=== PATIENT | female | born 1960 | race Two or more races ===

== ENCOUNTER 2017-03-27 15:26 | Emergency (ER) | payer MEDICAID, OTHER ==
[~2017-03-27] VITALS: Ht 160 cm; Wt 88.5 kg
[~2017-03-27 15:26] MED LIST: LISI2.5T47 PO; METF-370 PO
[2017-03-27 17:22] VITALS: BP 133/78
[2017-03-27 17:22] LABS: Urine Bacteria NONE SEEN /hpf (None Seen); Urine Blood 3+ /uL (Negative); Urine Mucus FEW (None Seen); Urine WBC 1599 /hpf (0 - 5); Urine WBC Clumps PRESENT /hpf (None Seen)
[2017-03-27] MEDS ORDERED: KETOROLAC TROMETH 60MG/2ML VIAL IM ONE ×2 (18:00→18:30)
== END 2017-03-27 19:13 | disposition home or self-care (01) ==
LOC: ER 15:26
DX: N39.0 Urinary tract infection, site not specified (principal); K42.9 Umbilical hernia without obstruction or gangrene; Z88.8 Allergy status to other drugs, medicaments and biological substances; I48.91 Unspecified atrial fibrillation; E11.9 Type 2 diabetes mellitus without complications
CPT/HCPCS: 74176; 81001; 82962; 96372; 99285; J1885

== ENCOUNTER 2018-01-21 10:55 | Emergency (ER) | payer MEDICAID, OTHER ==
[~2018-01-21] VITALS: Ht 160 cm; Wt 90.7 kg
[2018-01-21 11:01] VITALS: BP 157/79
[2018-01-21 12:11] LABS: Urine Bacteria NONE SEEN /hpf (None Seen); Urine Blood Negative /uL (Negative); Urine Specific Gravity 1.013 (1.001-1.035); Urine WBC <1 /hpf (0 - 5)
[2018-01-21] MEDS ORDERED: HYDROcodone-ACET 10/325MG TAB PO ONE (13:15)
[2018-01-21] MEDS ORDERED: CEFOTETAN DISODIUM IV ONE (15:45)
[2018-01-21] MEDS ORDERED: D5W 5% IV ONE (15:45)
[2018-01-21] MEDS ORDERED: cefTRIAXone SODIUM 250 MG VL IM ONE (16:00)
== END 2018-01-21 16:26 | disposition home or self-care (01) ==
LOC: ER 10:55
DX: N73.9 Female pelvic inflammatory disease, unspecified (principal); E11.9 Type 2 diabetes mellitus without complications; I48.91 Unspecified atrial fibrillation; Z90.49 Acquired absence of other specified parts of digestive tract; Z88.6 Allergy status to analgesic agent
CPT/HCPCS: 81001; 82962; 87070; 87205; 87210; 87491; 87591; 96372; 99283; J0696; J3490; J7060

== ENCOUNTER 2020-09-22 21:16 | Emergency (ER) | payer OTHER ==
[~2020-09-22] VITALS: Ht 160 cm; Wt 89.4 kg
[2020-09-22 23:57] LABS: Urine Bacteria NONE SEEN /hpf (None Seen); Urine Blood 2+ /uL (Negative); Urine Specific Gravity 1.006 (1.001-1.035); Urine WBC 111 /hpf (0 - 5); Urine WBC Clumps PRESENT /hpf (None Seen)
[2020-09-23 02:03] VITALS: BP 144/72
[2020-09-23] MEDS ORDERED: cefTRIAXone SOD 1,000 MG VL IM ONE (02:30)
== END 2020-09-23 03:28 | disposition home or self-care (01) ==
LOC: ER 21:22
DX: N39.0 Urinary tract infection, site not specified (principal); E66.9 Obesity, unspecified; Z68.34 Body mass index [BMI] 34.0-34.9, adult; I48.91 Unspecified atrial fibrillation; E11.9 Type 2 diabetes mellitus without complications; Z90.89 Acquired absence of other organs; Z90.49 Acquired absence of other specified parts of digestive tract; Z79.899 Other long term (current) drug therapy; Z88.6 Allergy status to analgesic agent
CPT/HCPCS: 81001; 87086; 96372; 99283; J0696

== ENCOUNTER 2020-11-14 20:31 | Emergency (ER) | payer OTHER ==
[~2020-11-14] VITALS: Ht 160 cm; Wt 90.3 kg
[2020-11-14 21:50] LABS: Basophils # (auto) 0 10 ^3/uL (0-0.2); Basophils % (auto) 0.5 % (0.0-2.0); Eosinophils # (auto) 0.1 10 ^3/uL (0-0.8); Eosinophils % (auto) 0.8 % (0.0-7.0); Hematocrit 43.7 % (36.0-46.0); Hemoglobin 14.9 g/dL (12.2-16.2); Lymphocytes # (auto) 2.2 10 ^3/uL (0.4-5.4); Lymphocytes % (auto) 23.5 % (10.0-50.0); Mean Corpuscular Hemoglobin 31.2 pg (28.0-32.0); Mean Corpuscular Hgb Conc. 34.1 g/dL (32.0-36.0); Mean Corpuscular Volume 91.4 fL (80.0-100.0); Monocytes # (auto) 0.6 10 ^3/uL (0-1.3); Monocytes % (auto) 6.7 % (0.0-12.0); Neutrophils # (auto) 6.4 10 ^3/uL (1.6-8.6); Neutrophils % (auto) 68.5 % (37.0-80.0); Nucleated Red Blood Cells % 0.1 %; Red Blood Cells 4.78 10^6/uL (4.0-5.20); Red Cell Distribution Width 12.9 % (11.8-14.3); White Blood Cell 9.4 10^3/uL (4.4-10.8)
[2020-11-14 22:01] LABS: Albumin 3.8 g/dL (3.4-5.0); Anion Gap 5 (5-15); Blood Urea Nitrogen 12 mg/dL (7-18); Calcium 9.1 mg/dL (8.5-10.1); Carbon Dioxide 31 mmol/L (21-32); Chloride 104 mmol/L (98-107); Glucose 126 mg/dL (74-106); Potassium 3.9 mmol/L (3.5-5.1); Sodium 140 mmol/L (136-145)
[2020-11-14 22:07] LABS: Alanine Aminotransferase 47 U/L (13-56); Alkaline Phosphatase 91 U/L (45-117); Aspartate Aminotransferase 22 U/L (15-37); BUN/Creatinine Ratio 18.5; Bilirubin, Total 0.4 mg/dL (0.2-1.0); GFR African American 119 mL/min; GFR Non-African American 98 mL/min; Total Protein 8.1 g/dL (6.4-8.2)
[2020-11-15] MEDS ORDERED: diazePAM 2 MG TAB PO ONE (00:30)
[2020-11-15] MEDS ORDERED: ACETAMINOPHEN 500 MG TAB PO ONE (00:30)
[2020-11-15] MEDS ORDERED: KETOROLAC TROMETH 60MG/2ML VIAL IM ONE (00:30)
[2020-11-15] MEDS ORDERED: IOHEXOL 300 MG/ML 100ML BOTTLE IJ ONE (03:19)
[2020-11-15 05:10] VITALS: BP 139/76
== END 2020-11-15 05:23 | disposition home or self-care (01) ==
LOC: ER 20:31
DX: M77.9 Enthesopathy, unspecified (principal); M54.2 Cervicalgia; R68.84 Jaw pain; I48.91 Unspecified atrial fibrillation; E11.9 Type 2 diabetes mellitus without complications; Z90.49 Acquired absence of other specified parts of digestive tract; Z79.899 Other long term (current) drug therapy; Z88.8 Allergy status to other drugs, medicaments and biological substances
CPT/HCPCS: 36415; 70491; 80053; 84484; 85025; 93005; 96372; 99285; J1885; Q9967